=== PATIENT | female | born 1970 | race Caucasian/White ===

== ENCOUNTER → 2021-03-24 | Outpatient (CLI) | payer BC ==
--- NOTE | 2021-03-24 10:06 | Diagnostic Imaging Report ---
PROCEDURE: CT right lower extremity without contrast. TECHNIQUE: Axially acquired CT was obtained through the right lower extremity without intravenous contrast. Coronal and sagittal reformations were also performed. Auto Exposure Controls were utilized during the CT exam to meet ALARA standards for radiation dose reduction. INDICATION: Injury of the right knee last week with possible tibias/fibula fracture. Hyperextension injury last night. COMPARISON: None FINDINGS: There is a minimally depressed fracture at the posterior aspect of the lateral tibial plateau with articular surface offset measuring about 1.5 mm. There is a moderate right knee joint effusion. No other fractures are seen. Alignment otherwise appears normal. There is a small Powell's cyst. There is moderate deep soft tissue edema about the right knee. No muscular atrophy is seen. The tendons and ligaments are not well evaluated by CT. IMPRESSION: 1. Minimally depressed fracture at the posterior aspect of the right lateral tibial plateau. 2. Moderate right knee joint effusion. Small Powell's cyst. Dictated by: Dictated on workstation # [id number]
== END ==
LOC: RAD 07:43
PROVIDERS: ATTEND Physician Assistant
DX: S82.141A Displaced bicondylar fracture of right tibia, initial encounter for closed fracture (principal); X58.XXXA Exposure to other specified factors, initial encounter
CPT/HCPCS: 73700